=== PATIENT | male | born 1995 | race Caucasian/White ===

== ENCOUNTER 2019-07-05 20:44 | Emergency (ER) | payer OTHER ==
[~2019-07-05] VITALS: Ht 182.9 cm; Wt 72.6 kg
--- NOTE | 2019-07-05 21:27 | NUR ---
at bedside for MSE
[2019-07-05] MEDS ORDERED: SULFAMETH/TRIMETH 800/160 MG TABLET ONE (21:42)
[2019-07-05] MEDS ORDERED: TDAP DIPH,PERTUSS,TET VAC/PF 0.5 ML DISP.SYRIN IM ONE ×2 (21:42→21:45)
[2019-07-05] MEDS ORDERED: SULFAMETH/TRIMETH 800/160 MG TABLET PO ONE (21:45)
--- NOTE | 2019-07-05 21:55 | NUR ---
Patient discharged to home in stable conditon. Written and verbal after care instructions given. Patient verbalizes understanding of instructions.
== END 2019-07-05 21:58 | disposition home or self-care (01) ==
LOC: ER 20:44
DX: S01.111A Laceration without foreign body of right eyelid and periocular area, initial encounter (principal); F17.290 Nicotine dependence, other tobacco product, uncomplicated; Z71.6 Tobacco abuse counseling; W06.XXXA Fall from bed, initial encounter; Y93.89 Activity, other specified; Y92.89 Other specified places as the place of occurrence of the external cause; Y99.8 Other external cause status
CPT/HCPCS: 90715; A4663